=== PATIENT | male | born 1985 | race Caucasian/White ===

== ENCOUNTER 2020-10-14 13:58 | Outpatient (CLI) | payer OTHER | END 2020-10-14 14:12 | disposition home or self-care (01) | LOC: RAD 13:58 | PROVIDERS: ATTEND Orthopaedic Surgery | DX: M79.641 Pain in right hand (principal); M25.531 Pain in right wrist ==

== ENCOUNTER 2020-10-17 10:21 | Outpatient (CLI) | payer OTHER | END 2020-10-17 11:00 | disposition home or self-care (01) | LOC: TOM 10:21 | PROVIDERS: ATTEND Orthopaedic Surgery | DX: S62.316A Displaced fracture of base of fifth metacarpal bone, right hand, initial encounter for closed fracture (principal) ==

== ENCOUNTER 2020-10-26 08:10 | Outpatient (CLI) | payer OTHER | END 2020-10-26 08:23 | disposition home or self-care (01) | LOC: TOM 08:10 | PROVIDERS: ATTEND Orthopaedic Surgery | DX: S62.316A Displaced fracture of base of fifth metacarpal bone, right hand, initial encounter for closed fracture (principal) ==